=== PATIENT | female | born 2000 | race Caucasian/White ===

== ENCOUNTER 2023-09-09 18:55 | Emergency (ER) | payer SELFPAY ==
[2023-09-09 19:14] VITALS: BP 162/96
--- NOTE | 2023-09-09 20:12 | ED.GENMED ---
History of Present Illness
General
Chief Complaint: Rabies
Source: patient
Time Seen by Provider: 09/09/23 19:45
Travel History
Have you had any contact with someone who has COVID-19?: No
Do you have any symptoms of coronavirus? Fever > 100 degrees, chills, cough, shortness of breath, sore throat, loss of taste or smell, muscle aches, or headache?: No
History of Present Illness
History of Present Illness:
23-year-old female presenting to the emergency department for evaluation and ultimately treatment for rabies. 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 She went to an urgent care who placed her on antibiotics. She found out
that the cat had today but the family had cremated the cat so they were unable to test for rabies. Patient believes the cat was vaccinated for rabies but states the cat was overall very sickly and at a young age and just wanted to
be safe. She has no other concerns at this time.
Past History
Past History
ED Past Medical History: Psychiatric
ED Past Surgical History: None
Social History
Tobacco: Non-smoker
Alcohol: Occasional
Drug: None
Personal: Single
Living: with family
Employment: Employed
Review of Systems
Review of Systems
All Other Systems: ROS reviewed and negative except as documented in HPI and ROS
Phy Exam
Physical Exam
Physical Exam:
GENERAL: Alert , in no apparent distress
EYE: conjunctiva clear
Head: Normocephalic atraumatic
NECK: Supple,
ENT: mmm.
LUNGS: no acute respiratory distress
NEUROLOGICAL: Alert and oriented
SKIN: Warm and dry, skin intact.
MUSCULOSKELETAL: well perfused.
PSYCH: Normal and appropriate interaction.
Scores
Heart Failure Risk
Heart Failure Risk Score: Not Applicable
Heart Score for Chest Pain Patients
STEMI patient?: Not applicable
Withdrawal Assessment of Alcohol
Withdrawal Assessment Completed?: Not applicable
Course
Orders/Labs/Results
Orders:
Orders
09/09/23 20:18
Rabies Immune Globulin/Pf [HyperRAB] 2,330 unit IM NOW STA
09/09/23 20:30
Rabies Vaccine (Pcec)/Pf [Rabavert Rabies Vacc W-Diluent] 2.5 unit IM .ONCE ONE
Vital Signs
Initial and Last Documented VS:
Initial Vital Signs
Temp Pulse Resp BP Pulse Ox
98.1 F 94 18 162/96 98
09/09/23 19:14 09/09/23 19:14 09/09/23 19:14 09/09/23 19:14 09/09/23 19:14
Last Documented Vital Signs
Temp Pulse Resp BP Pulse Ox
98.1 F 94 18 162/96 98
09/09/23 19:14 09/09/23 19:14 09/09/23 19:14 09/09/23 19:14 09/09/23 19:14
MDM/Problems Addressed
MDM/Problems Addressed:
Discussed risk versus benefit of rabies vaccination with the patient and overall she would like to proceed with rabies vaccination at this time. Discussed the patient needs to return to the outpatient center for rabies immunization. She is aware
of return precautions emergency department but otherwise stable for discharge home.
*Pulse Oximetry
Patient hypoxic: no
*Critical Care Note
Total Time (30-74mins, 75-104mins- exclusive of procedures): Not Applicable
ED Attending Note
-
Portions of this chart may have been created with voice recognition software.� Occasional wrong word or��sound alike� substitutions may have occurred due to the inherent limitations of voice recognition software.
Discharge Plan
Departure
Patient Disposition: Home (Routine Discharge)
Date of Disposition: 09/09/23
Time of Disposition: 20:12
Patient with high blood pressure during this ER visit?: Yes
Discharge Problem:
Encounter for immunization
Instructions: Rabies
Stand Alone Forms: Rabies Vaccine Post Exp Dosing
Interventions
Interventions:
*Risk Screen - Suicide Last Done: 09/09/23 19:14
*General Assessment Last Done: 09/09/23 19:38
*Neglect/Abuse Screening Last Done: 09/09/23 19:14
ED- Fall Risk Assessment Last Done: 09/09/23 19:38
ED-Skin Assessment Last Done: 09/09/23 19:38
Discharge Date and Time
Print Language: [id number]
[2023-09-09] MEDS: RABAVERT RABIES VACC W-DILUENT 2.5 UNIT IM (20:38)
[2023-09-09] MEDS: HyperRAB 2330 UNIT IM (20:44)
== END 2023-09-09 21:19 | disposition home or self-care (01) ==
LOC: EMR 18:55
PROVIDERS: EMERGENCY PHYSICIAN Emergency Medicine; FAMILY PHYSICIAN Student in an Organized Health Care Education/Training Program
DX: Z20.3 Contact with and (suspected) exposure to rabies (principal); Z23 Encounter for immunization; T14.8XXA Other injury of unspecified body region, initial encounter; W55.01XA Bitten by cat, initial encounter; R03.0 Elevated blood-pressure reading, without diagnosis of hypertension
CPT/HCPCS: 99284; 90471; 96372; 90375; 90675

== ENCOUNTER 2023-09-24 15:13 | Outpatient (RCR) | payer OTHER, SELFPAY ==
[2023-09-12 11:45] VITALS: BP 130/74
[2023-09-12] MEDS: RABAVERT RABIES VACC W-DILUENT 2.5 UNIT IM (12:03)
[2023-09-16 15:14] VITALS: BP 125/67
[2023-09-16] MEDS: RABAVERT RABIES VACC W-DILUENT 2.5 UNIT IM (15:20)
[2023-09-24 15:22] VITALS: BP 127/75
[2023-09-24] MEDS: RABAVERT RABIES VACC W-DILUENT 2.5 UNIT IM (15:31)
== END 2023-09-25 08:18 | disposition home or self-care (01) ==
LOC: OID 15:13
PROVIDERS: ATTENDING PHYSICIAN Emergency Medicine; FAMILY PHYSICIAN Student in an Organized Health Care Education/Training Program
DX: Z20.3 Contact with and (suspected) exposure to rabies (principal); Z23 Encounter for immunization
CPT/HCPCS: 90471; 90675; 96372